=== PATIENT | female | born 1950 | race Caucasian/White ===

== ENCOUNTER → 2020-01-05 | Outpatient (CLI) | payer OTHER | LOC: SJCVC 11:24 → SJCVCIMAG 11:24 | DX: I65.22 Occlusion and stenosis of left carotid artery (principal); R94.31 Abnormal electrocardiogram [ECG] [EKG]; R09.89 Other specified symptoms and signs involving the circulatory and respiratory systems; R47.9 Unspecified speech disturbances; R07.9 Chest pain, unspecified; I10 Essential (primary) hypertension; E78.00 Pure hypercholesterolemia, unspecified; R06.02 Shortness of breath; Z82.49 Family history of ischemic heart disease and other diseases of the circulatory system; Z79.82 Long term (current) use of aspirin; Z79.899 Other long term (current) drug therapy ==

== ENCOUNTER → 2020-01-07 | Outpatient (CLI) | payer OTHER ==
[~2020-01-07] MED LIST: CHILDREN'S ASPI81 M1 PO; COQ-10100 MG PO; DULOXETINE HCL60 MG PO; DURAGESIC1 EAC4 TRANSDERM; EDARBYCLOR 40-1 EAC1 PO; ESTRACE0.5 MG PO; GABAPENTIN600 M1 PO; GRALISE600 MG PO; LEVO-T100 MCG PO; LORATIDINE 10 M10 M1 PO; METHOCARBAMOL500 M2 PO; NORCO 5-325 TA1 EAC1 PO; ROSUVASTATIN CA20 MG PO; THERA-M1 EAC1 PO; VITAMIN D22000 UNIT PO
== END ==
LOC: SJCVCIMAG 14:56
DX: R00.0 Tachycardia, unspecified (principal); I10 Essential (primary) hypertension; E78.5 Hyperlipidemia, unspecified; Z79.82 Long term (current) use of aspirin; Z79.899 Other long term (current) drug therapy

== ENCOUNTER 2020-01-14 14:06 | Outpatient (CLI) | payer OTHER ==
[~2020-01-14] VITALS: Ht 165.1 cm; Wt 91.2 kg
--- NOTE | ~2020-01-14 | D ---
Formerly [facility] [place] [address] DISCHARGE SUMMARY Name: ENRIQUETATIKI Room #: 207-P [facility]#: [id number] Admission: 01/14/20 Attend Phys: Wilver Newman MD, Discharge: Date of : 52 Report #: [id number] THIS REPORT FOR: cc: SHAHEED Carmona family physician/PCP SHAHEED Kristine family physician/PCP ~ THIS REPORT FOR: //name// CC: SHAHEED physician/PCP Wilver Newman [facility] SUMMARY: The patient is a 69-year-old female who had had significant recurrence of chest pain and an abnormal nuclear stress test. She was taken to the catheterization late last night. Only mild 3-vessel coronary artery disease was noted, so a false positive finding. This etiology could be GI in origin, possibly gallbladder of this recurrent pain. She is hemodynamically stable. There is no laboratory work, but yesterday's lab work was all within normal limits with an H and H of 13 and 39, creatinine 0.8, potassium 3.7. Lipids: Cholesterol 182, trigcylcerides 178, HDL 60, LDL 87. She is up and ambulating. The groin is soft. There was vascular closure used without complication. I had initiated at last visit Edarbyclor 40/25 and Crestor 20. She will also continue those with Robaxin, baby aspirin, hydrocodone. She has a fentanyl patch, Cymbalta, CoQ10. No lifting for 48 hours. No lying in tub or Jacuzzi or peña for 5 days. Follow up with Dr. Cari Aj. I will see the patient in the clinic back in 6 months. DISCHARGE DIAGNOSES: 1. Mild coronary artery disease. 2. Recurrent chest pain, probable gastrointestinal in etiology. We will obtain abdominal ultrasound this morning. 3. Chronic pain. 4. Hypertension. 5. Hypercholesterolemia. Thank you for asking me to assist in the care of this patient. By: 1004 1033 /nt
--- NOTE | ~2020-01-14 | H ---
[facility] [place] [address] HISTORY AND PHYSICAL Name: MIK ROBISONROSEANN Romo Room #: [facility]#: [id number] Admission: 01/14/20 Attend Phys: Wilver Newman MD, Discharge: Date of : 52 Report #: [id number] THIS REPORT FOR: cc: [facility] - No family physician/PCP FAM - No family physician/PCP ~ CC: [facility] physician/PCP Wilver Aj MD DATE OF SERVICE: 01/14/2020 HISTORY OF PRESENT ILLNESS: The patient is a 69-year-old female who I saw in the office approximately 10 days ago. Subsequently underwent nuclear stress testing. She had been to the [facility] with chest pain. I see her and subsequently came for evaluation. Nuclear stress testing revealed inferior wall ischemia. She did not have any prior cardiac history. She had adjusted her blood pressure medicines and was working well with the Edarbyclor 40/25, CoQ10, estradiol, fentanyl, gabapentin, hydrocodone, levothyroxine and loratadine. Also, takes rosuvastatin 20, vitamin D3 and an aspirin. She had pain daily this week. I subsequently called her had to come to the office with nonspecific EKG changes and elected to perform catheterization tonight based on the abnormal test and her recurrent symptoms. PAST MEDICAL HISTORY: Positive for the hypertension, hypercholesterolemia, hysterectomy, rotator cuff, spinal fusion, chronic pain, fentanyl patch, thyroidectomy. SOCIAL HISTORY: They are , live on a farm in [place]. Still mostly chickens. Social alcohol, no tobacco, just 1 drink a day. They do have children. 2-3 cups of coffee a day, some exercise until recently. ALLERGIES: TRAMADOL, AUGMENTIN. FAMILY HISTORY: Mother had an infarct in her 60s. REVIEW OF SYSTEMS: Negative except for stated above. PHYSICAL EXAMINATION: VITAL SIGNS: Blood pressure 136/80, pulse is 70s. HEENT: Eyes are xanthelasmas. Pharynx is clear. NECK: Shows preserved upstrokes without JVD or bruits. LUNGS: Clear. CARDIOVASCULAR: Regular rate and rhythm, S1, S2. ABDOMEN: Soft. No HSM or abdominal bruit. There is some slight tenderness in the right upper quadrant, but no rebound or guarding. [facility] [address] [place] [address] HISTORY AND PHYSICAL Name: TIKI ROBISON Room #: [facility]#: [id number] Admission: 01/14/20 Attend Phys: Wilver Newman MD, Discharge: Date of : 52 Report #: [id number] EXTREMITIES: Reveal no edema. Pulses diminished. NEUROLOGIC: Nonfocal. SKIN: Warm and dry without xanthoma or ulcer. Some mild venous stasis changes are noted. MUSCULOSKELETAL: Generalized arthritic changes. NEUROLOGIC: Intact. ASSESSMENT: 1. Chest pain, suspect coronary artery disease, abnormal nuclear stress test. 2. Hypertension. 3. Chronic pain, back pain, on fentanyl patch. 4. Hypothyroidism, status post thyroidectomy. 5. Hypercholesterolemia. 6. Degenerative joint disease. RECOMMENDATIONS AND PLAN: We will proceed to the catheterization lab to delineate the anatomy. Risks, benefits, alternatives were discussed. Thank you for asking me to assist in the care of this patient. By: 1807 1824 /nt
[2020-01-14 15:20] LABS: HEMATOCRIT 39.4 % (37.0-47.0); HEMOGLOBIN 13.1 gm/dL (12.0-15.0); MCH 31.2 pg (26.0-34.0); MCHC 33.3 g/dL (28.0-37.0); MCV 93.8 fL (80.0-100.0); RBC 4.2 mil/uL (4.20-5.00); RDW 12.7 % (10.5-14.5); WBC 6.3 thou/uL (4.0-11.0)
[2020-01-14 15:28] VITALS: BP 140/75
[2020-01-14 15:28] LABS: CREATININE 0.8 mg/dL (0.6-1.0); POTASSIUM 3.7 mmol/L (3.5-5.1)
[2020-01-14] MEDS ORDERED: COQ-10100 MG PO (15:30)
[2020-01-14] MEDS ORDERED: EDARBYCLOR 40-1 EAC1 PO (15:30)
[2020-01-14] MEDS ORDERED: DULOXETINE HCL60 MG PO (15:32)
[2020-01-14] MEDS ORDERED: ESTRACE0.5 MG PO (15:33)
[2020-01-14] MEDS ORDERED: DURAGESIC1 EAC4 TRANSDERM (15:34)
[2020-01-14] MEDS ORDERED: GABAPENTIN600 M1 PO (15:35)
[2020-01-14] MEDS ORDERED: GRALISE600 MG PO (15:36)
[2020-01-14] MEDS ORDERED: LEVO-T100 MCG PO (15:37)
[2020-01-14] MEDS ORDERED: NORCO 5-325 TA1 EAC1 PO (15:37)
[2020-01-14] MEDS ORDERED: LORATIDINE 10 M10 M1 PO (15:38)
[2020-01-14] MEDS ORDERED: METHOCARBAMOL500 M2 PO (15:39)
[2020-01-14] MEDS ORDERED: ROSUVASTATIN CA20 MG PO (15:40)
[2020-01-14] MEDS ORDERED: VITAMIN D22000 UNIT PO (15:41)
[2020-01-14] MEDS ORDERED: THERA-M1 EAC1 PO (15:41)
[2020-01-14] MEDS ORDERED: CHILDREN'S ASPI81 M1 PO (15:42)
[2020-01-14 16:17] LABS: CHOLESTEROL 182 mg/dL (<200); HDL CHOLESTEROL 60 mg/dL (>40); LDL CHOLESTEROL 87 mg/dL (<100); TRIGLYCERIDE 178 mg/dL (<150); VLDL 36 mg/dL (<40)
[2020-01-14 16:23] LABS: SERUM ASSESSMENT Clear
--- NOTE | 2020-01-14 19:02 | NUR ---
ASSUMED CARE OF PT AT APPROX 1830. BEGAN ADMISSION PROCESS, WITH ASSESSMENT AND INSTRUCTIONS. GAVE REPORT TO ONCOMING NIGHT NURSE WHO WILL FINISH ADMISSION.
[2020-01-14 19:15] VITALS: BP 126/68
[2020-01-14 23:50] VITALS: BP 110/58
[2020-01-15 04:35] VITALS: BP 111/65
--- NOTE | 2020-01-15 05:44 | NUR ---
PATIENTS CARES WERE ASSUMED AT SHIFT CHANGE, PATIENT WAS ASSESSED AND MADE COMFORTABLE. THIS LADY IS A 23 HOUR OPS SHE WILL DISCHARGE THIS AFTERNOON. THIS PATIENT DID WELL THROUGH THIS PHASE. THIS HAS BEEN A UNEVENTFUL NIGHT. HOURLY ROUNDS WERE MADE. THE BED IS IN A LOW AND LOCKED POSITION
[2020-01-15 07:45] VITALS: BP 123/62
--- NOTE | 2020-01-15 08:31 | EKG ---
[facility] [place] [address] ELECTROCARDIOGRAM REPORT Name: TIKI ROBISON Clarissa Room #: 207-P [facility]#: [id number] Admission: 01/14/20 Attend Phys: Wilver Newman MD, Discharge: Date of : 52 Report #: [id number] THIS REPORT FOR: cc: FAM - No family physician/PCP FAM - No family physician/PCP Taurus Pierson MD [facility] ~ THIS REPORT FOR: //name// [facility] Test Date: 2020-01-14 Test Time: 16:02:15 Pat Name: TIKI ROBISON Department: Room: Gender: F Cooler Supervisor: Dmitry GRIER : 1950 Requested By: Wilver Newman Order Number: [id number] MD: Taurus Pierson Measurements Intervals [place] Rate: 72 P: 52 RI: 152 QRS: 42 QRSD: 100 T: 26 QT: 422 QTc: 462 Interpretive Statements Sinus rhythm No significant abnormality No previous ECG available for comparison Electronically Signed On 01-15-2020 8:30:31 DESIGNER WRITER by Taurus Pierson [email or web address] <ELECTRONICALLY SIGNED> By: Taurus Pierson MD, FAC 01/15/20 0830 1602 1602 Taurus Pierson MD, [facility] /EPI
[2020-01-15 11:18] VITALS: BP 123/62
--- NOTE | 2020-01-15 11:44 | NUR ---
ASSESSMENT CHARTED. PT ALERT AND ORIENTED. VSS. DENIED HAVING PAIN OR DISCOMFORT. RIGHT GROIN INCISION. C/D/I. NO HEMATOMA NOTED. ORDERS GIVEN TO DISCHARGE PT TO HOME. DISCHARGE INSTRUCTIONS GIVEN TO PT. PT VERBERLISED UNDERSTANDING.
--- NOTE | 2020-01-15 15:50 | CATHLAB ---
[facility] [place] [address] INVASIVE PROCEDURE REPORT Name: TIKI ROBISON Room #: [facility]#: [id number] Admission: 01/14/20 Attend Phys: Wilver Newman MD, Discharge: 01/15/20 Date of : 52 Report #: [id number] THIS REPORT FOR: cc: FAM - No family physician/PCP FAM - No family physician/PCP Wilver Newman MD [facility] ~ APPROVED REPORT Study performed: 01/14/2020 15:04:41 Patient Details The patient is a 69 year-old female Event Personnel Wilver Newman Pediatric Urologist, Mo Lynch RN, Calvin Weeks RTR Michael Argueta Roberta Monitor Procedures Performed Art Access - R femoral artery* Art Access - R femoral artery* Left Heart Cath w/or w/o Coronaries [id number] [facility] 23284 Initial Mod Sed Same Phys/QHP Gr5y 753210 Abdominal Aortography 242408 Hemostasis w/ Mynx Indication Chest pain Procedure Narrative The Right Groin^ was infiltrated with 1% Lidocaine subcutaneous anesthesia. A PINNACLE 6FR Sheath #[id number] sheath was inserted into the RFA 6F^. Coronary angiography was performed using coronary diagnostic catheters. The right coronary system was accessed and visualized with a JR4 catheter. The left coronary system was accessed and visualized with a JL4 catheter. The left ventricle was accessed and visualized with a STR PIG catheter. Left ventriculogram was performed in 30 degree projection. Closure device was deployed with a Fr MYNXGRIP 6/7F #[id number]. The patient tolerated the procedure well and there were no complications associated with the procedure. There was no hematoma. Intraoperative Conscious Sedation Sedation start time: 1740 Case end Time: 1809 Fentanyl 50 mcg Versed 1 mg [facility] [address] [place] [address] INVASIVE PROCEDURE REPORT Name: TIKI ROBISON [id number] Admission: 01/14/20 Attend Phys: Wilver Newman, Discharge: 01/15/20 Date of : 52 Report #: [id number] Fluoro Time: 2.26 minutes Dose: DAP 3098.30 cGycm2 332 mGy Contrast Type and Amount: Omnipaque 90 ml Hemodynamics The aortic pressure is 150/74 mmHg with a mean of 113 mmHg. The left ventricular pressure is 163/8 mmHg with a mean of mmHg. The left ventricular end diastolic pressure is 27 mmHg. Conclusion 1. #1 normal left ventricular size and systolic function EF 60% #2 abdominal aortogram revealing normal caliber aorta no evidence of stenosis or aneurysm. #3 coronary anatomy selectively injected revealing only minimal plaquing three-vessel disease. Right dominant system. Attenuated distal LAD. No indication for intervention. Recommendations and plan: Continue aggressive medical therapy. Etiology of chest pain is noncardiac. <ELECTRONICALLY SIGNED> By: Wilver Newman MD, FACC 01/15/20 1549 1549 1549 Wilver Newman MD, FACC /INF
== END 2020-01-15 11:56 | disposition home or self-care (01) ==
LOC: CATH 14:06 → SJCVC 14:06 → 2N 19:08 → ENTRNSPT 01-15 11:42 → EDTRNSPTSTS 01-15 11:50 → CATH 01-15 11:56
PROVIDERS: Internal Medicine Cardiovascular Disease
DX: R07.9 Chest pain, unspecified (principal); I25.10 Atherosclerotic heart disease of native coronary artery without angina pectoris; I10 Essential (primary) hypertension; E78.00 Pure hypercholesterolemia, unspecified; Z98.890 Other specified postprocedural states; Z79.899 Other long term (current) drug therapy; Z90.710 Acquired absence of both cervix and uterus; Z87.891 Personal history of nicotine dependence; Z82.49 Family history of ischemic heart disease and other diseases of the circulatory system; Z88.8 Allergy status to other drugs, medicaments and biological substances; Z79.82 Long term (current) use of aspirin
CPT/HCPCS: 10081

== ENCOUNTER → 2020-01-15 | Outpatient (CLI) | payer OTHER | LOC: SJCVCIMAG 08:23 | DX: K76.89 Other specified diseases of liver (principal) ==

== ENCOUNTER → 2021-09-26 | Outpatient (CLI) | payer OTHER | LOC: SJCVC 11:25 | PROVIDERS: ATTEND Internal Medicine Cardiovascular Disease | DX: R55 Syncope and collapse (principal); I10 Essential (primary) hypertension; E78.00 Pure hypercholesterolemia, unspecified; Z79.899 Other long term (current) drug therapy; Z72.89 Other problems related to lifestyle; Z88.8 Allergy status to other drugs, medicaments and biological substances; Z82.49 Family history of ischemic heart disease and other diseases of the circulatory system ==